=== PATIENT | male | born 2000 ===

== ENCOUNTER 2018-01-13 14:04 | Emergency (ER) | payer SELFPAY ==
[2018-01-13 14:29] VITALS: BP 118/57; PULSE 78; RESP 20; TEMP 99.2; O2SAT 98
[2018-01-13] MEDS ORDERED: SULFAMETHOXAZOLE-TRIMETHOPRIM DS 800-160 MG TAB PO ONE (15:00)
--- NOTE | 2018-01-13 15:19 | PD ---
HPI Chief Complaint: Medical Clearance Time Seen by Provider: 15:13 Travel History International Travel<30 days: No Contact w/Intl Traveler<30days: No Traveled to known affect area: No History of Present Illness HPI 17-year-old male presents emergency department for evaluation of an abscess to the gluteal area that is been present for 3-4 days. Patient says that he does not have a history of these but believes it is an abscess. Says the area is painful particularly with pressure and palpation. Denies fever or chills. Denies pain with bowel movements or urination. He has no other complaints today. PFSH Past Medical History Medical History: Denies Significant Hx Tetanus Vaccination: < 5 Years Past Surgical History Surgical History: No Previous Surgery Social History Alcohol Use: No Tobacco Use: No Substance Use: No Allergies-Medications (Allergen,Severity, Reaction): Coded Allergies: No Known Allergies (Unverified Adverse Reaction, Unknown, 01/13/18) Reported Meds & Prescriptions Reported Meds & Active Scripts Active Bactrim DS (Sulfamethoxazole-Trimethoprim) 800-160 Mg Tab 1 Tab PO BID Review of Systems Except as stated in HPI: all other systems reviewed are Neg Physical Exam Narrative GENERAL: Well-nourished, well-developed patient, in NAD SKIN: Focused skin assessment warm/dry. No rashes or lesions. Gluteal fold-just inferior to the pilonidal area is a1.5-2cm area fo fluctuance with central puncta, no obvious extension into anal area. HEAD: Normocephalic. Atraumatic. EYES: No scleral icterus. No injection or drainage. THROAT: No pharyngeal injection, exudates, or tonsillar hypertrophy. Airway is patent. NECK: Supple, trachea midline. No JVD or lymphadenopathy. No meningismus. MUSCULOSKELETAL: No cyanosis, or edema. BACK: Nontender without obvious deformity. No CVA tenderness. Data Data Last Documented VS Vital Signs Date Time Temp Pulse Resp B/P (MAP) Pulse Ox O2 Delivery O2 Flow Rate FiO2 01/13/18 14:29 99.2 78 20 118/57 (77) 98 Orders Orders Wound Culture And Gram Stain (01/13/18 15:00) Sulfamet-Trimeth Ds 800-160 Mg (Bactrim (01/13/18 15:00) MDM Medical Decision Making Medical Screen Exam Complete: Yes Emergency Medical Condition: Yes Differential Diagnosis Gluteal abscess, cellulitis, erysipelas Narrative Course 17-year-old male presents emerged from for evaluation of an abscess to the gluteal fold. Patient has no history of an abscess previously but believe this is an abscess because of the characteristics. Patient says the abscess is mildly painful to palpation and with sitting. He denies pain with bowel movements or urination. He denies fevers or chills. Physical exam findings consistent with an abscess the gluteal fold. There is no obvious extension to the anus. Incision and drainage performed. Wound culture obtained. Wound packed. Advised on wound care. Bactrim administered in the emergency department. Advised that he should return in approximately 2 days for wound check. Advised he should return sooner for worsening or persistent symptoms. Bactrim for outpatient use. Procedures Procedure Narrative INCISION AND DRAINAGE OF ABSCESS: The area was prepped and was sterilely draped. A subcutaneous wheal of 1 % Xylocaine without epinephrine with a total number 1 mL was used to anesthetize the area properly. A number 11 scalpel was used to make a 0.5-cm incision across the area of the abscess. The abscess was drained, complex loculations were broken down, and irrigated with normal saline. Cultures were obtained. Half-inch packing was placed in the wound. Sterile dressing applied. Patient advised to have packing removed in two days. Diagnosis Primary Impression: Abscess Referrals: Primary Care Physician Patient Instructions: Abscess (ED), General Instructions Departure Forms: Tests/Procedures, Work Release Enter return to work date: Jan 15, 2018 Additional Instructions: Follow up with your primary care physician within 2-3 days. Keep area clean and dry for 24 hours. He may leave the bandage in place for 1-2 days. As discussed, I recommend he come to the emergency department for reevaluation of the abscess, especially if the area becomes more red, swollen or painful. Tomorrow morning he may start your antibiotic. If you developed increased redness, swelling, or pain return to the emergency department as this could be a sign of infection. Scripts Sulfamethoxazole-Trimethoprim (Bactrim DS) 800-160 Mg Tab 1 TAB PO BID for Infection, #20 TAB 0 Refills Prov: Arturo Salazar MD 01/13/18 Disposition: 01 DISCHARGE HOME Condition: Stable Abigail Tineo Jan 13, 2018 15:19
[2018-01-13] MEDS ORDERED: BACT800T5 PO (15:20)
== END 2018-01-13 15:32 | disposition home or self-care (01) ==
LOC: NEPK 14:04
DX: L02.31 Cutaneous abscess of buttock (principal)
CPT/HCPCS: 10061; 87070; 87205